=== PATIENT | male | born 1955 | race Caucasian/White ===

== ENCOUNTER → 2018-11-23 | Outpatient (CLI) | payer BC ==
--- NOTE | 2018-11-23 12:02 | REP ---
Right foot four views: There is no fracture or dislocation. There is osteoarthritis of the great toe MTP. There is an orthopedic screw in the neck of the great toe metatarsal. Mineralization and joint spaces are otherwise unremarkable. There are no calcifications. Impression: Great toe MTP osteoarthritis. Great toe metatarsal neck orthopedic screw. No fracture or dislocation. Electronically Signed by Rui Azul MD 11/23/2018 11:53 A
== END ==
LOC: M LRY 11:21
PROVIDERS: ATTEND Physician Assistant
DX: M19.071 Primary osteoarthritis, right ankle and foot (principal)

== ENCOUNTER → 2019-02-22 | Outpatient (REF) | payer BC | LOC: M SFHCLERA 19:16 | PROVIDERS: ATTEND Physician Assistant | DX: R50.9 Fever, unspecified (principal) ==